=== PATIENT | male | born 1995 ===

== ENCOUNTER 2018-07-22 09:08 | Emergency (ER) | payer OTHER, MEDICAID ==
[2018-07-22 09:46] VITALS: RESP 18; TEMP 97.9; O2SAT 97
[2018-07-22] MEDS ORDERED: Lidocaine 5% Patch TD ONE (10:11)
--- NOTE | 2018-07-22 10:30 | RAD ---
Date of service: 07/22/2018 HISTORY: sob COMPARISON: No prior. FINDINGS: LUNGS: No active pulmonary disease. PLEURA: No significant pleural effusion identified, no pneumothorax apparent. CARDIOVASCULAR: No aortic atherosclerotic calcification present. Normal cardiac size. No pulmonary vascular congestion. OSSEOUS STRUCTURES: No significant abnormalities. VISUALIZED UPPER ABDOMEN: Normal. OTHER FINDINGS: None. IMPRESSION: No active disease.
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
[2018-07-22] MEDS ORDERED: Oxycodone/Acetaminophen 5/325 mg Tab PO STA (11:22)
[2018-07-22 11:25] VITALS: BP 115/67; PULSE 83
--- NOTE | 2018-07-22 20:06 | CARD ---
APPROVED REPORT Date of service: 07/22/2018 EKG Measurement Heart [id number] <Conclusion> Normal sinus rhythm Normal ECG
== END 2018-07-22 11:25 | disposition home or self-care (01) ==
LOC: ED 09:08
DX: M54.5 Low back pain (principal); V49.9XXA Car occupant (driver) (passenger) injured in unspecified traffic accident, initial encounter